=== PATIENT | female | born 1970 | race Caucasian/White ===

== ENCOUNTER 2022-03-09 16:28 | Emergency (ER) | payer BC ==
[2022-03-09 18:17] LABS: ESTIMATED GFR 78 mL/min (>60)
== END 2022-03-09 18:57 | disposition home or self-care (01) ==
LOC: JP.ED 16:28
DX: R10.2 Pelvic and perineal pain (principal); K62.5 Hemorrhage of anus and rectum; E03.9 Hypothyroidism, unspecified; Z88.0 Allergy status to penicillin; Z88.2 Allergy status to sulfonamides; Z79.899 Other long term (current) drug therapy
CPT/HCPCS: 36415; 80048; 85025; 99284